=== PATIENT | male | born 1995 | race Caucasian/White ===

== ENCOUNTER 2018-09-17 18:51 | Emergency (ER) | payer MEDICAID ==
[~2018-09-17] VITALS: Ht 180.3 cm; Wt 86.2 kg
[2018-09-17 19:07] VITALS: BP 117/75
== END 2018-09-17 21:08 | disposition left against medical advice (07) ==
LOC: ER 18:51
DX: R51 Headache (principal); Z53.21 Procedure and treatment not carried out due to patient leaving prior to being seen by health care provider

== ENCOUNTER 2020-08-05 17:09 | Emergency (ER) | payer MEDICAID ==
[~2020-08-05] VITALS: Ht 177.8 cm; Wt 88.5 kg
[2020-08-05 17:23] VITALS: BP 127/81
== END 2020-08-05 17:31 | disposition home or self-care (01) ==
LOC: ER 17:09
DX: M25.521 Pain in right elbow (principal); M25.522 Pain in left elbow